=== PATIENT | male | born 1950 | race African-American/Black ===

== ENCOUNTER 2022-04-14 16:40 | Emergency (ER) | payer MEDICARE, OTHER ==
[~2022-04-14] VITALS: Ht 177.8 cm; Wt 83.9 kg
[2022-04-14 16:54] VITALS: BP 169/83
[2022-04-14] MEDS ORDERED: MORPHINE SULFATE 4 MG/ML SYR IM ONE (17:30)
--- NOTE | 2022-04-14 17:30 | NUR ---
72YO MALE PT C/O INCREASED L HIP PAIN [id number]. REPORTS INITIAL ONSET AFTER STROKE/STENT PLACEMENT. STATES PAIN AT MOST ON MOVEMENT AND TOUCH. MILD RELIEF AFTER TAKING ADVIL AND WARM BATHS. AMBULATORY W/ UNSTEADY GAIT. DENIES RECENT INJURY, CHEST PAIN , SOB, FEVER OR CHILLS. PT AAOX4, HOB POSITIONED PER COMFORT. SON AT BEDSIDE HX: HTN, CHF, PRE-DIABETES , STROKE ([id number]) TITO
--- NOTE | 2022-04-14 17:50 | NUR ---
XRAY AT BEDSIDE
[2022-04-14] MEDS ORDERED: ACET-8386 PO (18:28)
[2022-04-14] MEDS ORDERED: LID5T TP (18:28)
[2022-04-14] MEDS ORDERED: ONDA-188 PO (18:28)
[2022-04-14] MEDS ORDERED: DOCU-299 PO (18:28)
--- NOTE | 2022-04-14 18:40 | NUR ---
Patient discharged with v/s stable. Written and verbal after care instructions given and explained. Patient alert, oriented and verbalized understanding of instructions. Ambulatory with steady gait. All questions addressed prior to discharge. ID band removed. Patient advised to follow up with PMD. Rx of LIDODERM, NORCO, ZOFRAN given. Patient educated on indication of medication including possible reaction and side effects. Opportunity to ask questions provided and answered.
== END 2022-04-14 18:40 | disposition home or self-care (01) ==
LOC: MED 16:40
DX: S39.011A Strain of muscle, fascia and tendon of abdomen, initial encounter (principal); M25.552 Pain in left hip; Z79.899 Other long term (current) drug therapy; Z98.890 Other specified postprocedural states; X58.XXXA Exposure to other specified factors, initial encounter; Y93.89 Activity, other specified; Y92.89 Other specified places as the place of occurrence of the external cause; Y99.8 Other external cause status
CPT/HCPCS: 73502; 96372; 99283; J2270; Q0092